=== PATIENT | male | born 1945 | race Caucasian/White ===

== ENCOUNTER 2019-09-01 08:40 | Inpatient (IN) | payer MEDICARE, BC ==
--- NOTE | 2019-09-01 09:02 | CT ---
CT BRAIN WITHOUT CONTRAST: HISTORY: Level 1 stroke. Fell in the shower. Right-sided weakness FINDINGS: There is a small focal area of decreased attenuation in the medial aspect of the right occipital lobe which could represent an age-indeterminate infarct. No evidence of acute hemorrhage, midline shift or abnormal extra-axial fluid collections is seen. The ventricular size is appropriate and the basilar cisterns are patent. The bony calvarium is intact. The visualized paranasal sinuses and mastoid air cells are well aerated. IMPRESSION: Findings suspicious for an age indeterminate infarction in the right occipital lobe. Discussed over the telephone with ER physician Dr. Kiko Adamson at 8:57 AM
[2019-09-01] MEDS ORDERED: Ondansetron PF 4 MG/2 ML Vial ONE (09:09)
[2019-09-01 09:12] LABS: #Eosinphils 0.1 thou/uL (0.0-0.7); #Lymphocytes 1.2 thou/uL (1.20-3.40); #Monocytes 0.5 thou/uL (0.11-0.59); #Neutrophils 4.2 thou/uL (1.40-6.50); %Basophils 0.7 % (0.0-1.0); %Eosinophils 1.5 % (0.0-10.0); %Neutrophils 69.8 % (42.0-75.0); Hemoglobin 16.9 g/dL (14.0-18.0); Mean Corpuscular Hemoglobin 30.1 pg (27.0-31.0); Mean Platelet Volume 11.1 fL (7.4-10.4); Platelet Count 166 thou/uL (130-400); RBC Distribution Width 13.6 % (11.5-14.5)
[2019-09-01 09:27] LABS: Base Excess-Venous 0.8 mmol/L (-2.0 to 3.0); Bicarbonate (HCO3v) 26.9 mmol/L (22.0-28.0); CO2 Tension (PvCO2) 46.4 mmHg (40.0-50.0); Calcium, Ionized 1.01 mmol/L (See Comments:); Chloride 101 mmol/L (98-107); Hemoglobin - Calc 18.5 g/dL (14.0-18.0); Potassium 3.7 mmol/L (3.5-5.1); Sodium 140 mmol/L (138-145); T. Carbon Dioxide 28.3 mmol/L (22.0-28.0); vO2 Saturation-calc 92.4 % (60.0-85.0)
[2019-09-01 09:28] LABS: Lipase 12 U/L (8-78); Magnesium 1.5 mg/dL (1.6-2.6); Phosphorus 3.5 mg/dL (2.3-4.7)
[2019-09-01] MEDS ORDERED: Aspirin 300 MG Suppository ONE ×2 (09:37→13:04)
[2019-09-01 09:38] LABS: Anion Gap 17 mmol/L (10-20); BUN (Urea Nitrogen) 26 mg/dL (8.4-25.7); Calc. Creatinine Clearance 0 mL/min (70-130); Carbon Dioxide 25 mmol/L (23-31); Chloride 103 mmol/L (98-107); Estimated GFR-MDRD 44; Potassium 4.3 mmol/L (3.5-5.1); Sodium 141 mmol/L (136-145)
[2019-09-01 09:39] LABS: ALT (SGPT) 30 U/L (8-55); AST (SGOT) 30 U/L (5-34); Alkaline Phosphatase 82 U/L (40-110); Bilirubin, Total 0.9 mg/dL (0.2-1.2); Calcium 8.9 mg/dL (7.8-10.44); Globulin 2.6 g/dL (2.4-3.5); Glucose 258 mg/dL (83-110); Protein, Total 6.6 g/dL (5.8-8.1)
--- NOTE | 2019-09-01 09:48 | RAD ---
CHEST 1 VIEW: Date: 09/01/2019 HISTORY: Right-sided weakness, altered mental status. FINDINGS: Scattered irregular opacities overlie the chest and left shoulder which have more the appearance of a rtifactual densities. Heart size is within upper range of normal limits given inspiration. No conflue nt pneumonia, overt edema, or pleural effusion. IMPRESSION: Borderline heart size. No acute intrathoracic disease. POS: [facility]
[2019-09-01 10:04] LABS: CKMB 2.3 ng/mL (0-6.6)
--- NOTE | 2019-09-01 10:26 | CT ---
CT ANGIOGRAM NECK WITH CONTRAST CT ANGIOGRAM BRAIN WITH CONTRAST: DATE: 09/01/2019 HISTORY: 73-year-old male status post acute head and neck trauma from fall, and acute stroke symptoms: Right u pper extremity weakness. Dr. Orourke verbally gave report to Dr. Adamson of the emergency Department at 10:17 AM 09/01/2019 TECHNIQUE: After IV contrast injection, arterial bolus chasing technique scan performed from AP window to vertex of head. Coronal and sagittal 3-D MIP reconstructions. FINDINGS: Superior malpositioning of atlantoodontoid complex, including tip of odontoid process 14 mm superior to Hatteras's line, and atlantooccipital fusion. Secondary severe degenerative changes and deformity of right atlantoaxial joint. The basilar invagination, along with calcified degenerative ps eudopannus posterior and superior to the odontoid process, significantly, chronically compresses and deforms the medulla and cervical medullary junction. There is severe crowding of the foramen magn um. Brachiocephalic: No high-grade stenosis. Right subclavian: No high-grade stenosis. Right vertebral: Diffusely very small caliber and therefore difficult to evaluate. Prominent calcifie d plaque at origin causing high-grade, probably severe stenosis. Poor contrast opacification of distal cervical portion. No contrast visualized in 75% of the Proximal intracranial segment. Contrast visualized in very small caliber distal 0.8 cm, including junction with left vertebral-basilar. Left subclavian: No high-grade stenosis of proximal and mid portions. Distal portion obscured by jarad re streak artifact from dense contrast material in adjacent left subclavian vein. Left vertebral: Dominant. No high-grade short segment focal stenosis identified. Prominent calcified atheromatous plaque at intracranial portion causing mild stenosis. Right common carotid: No high-grade stenosis. Left common carotid: No high-grade stenosis. Right internal carotid: Heavily calcified plaque at origin and proximal R ICA. Estimated 75% stenosis at origin. No high-grade short segment focal stenosis elsewhere. Calcified plaque at carotid siphon. Calcified plaque causing severe stenosis at junction between cavernous and supraclinoid carot id. Left internal carotid: No significant stenosis in cervical portion. Severe stenosis due to calcified plaque at junction between cavernous carotid and supraclinoid carotid. Right MCA: No high-grade stenosis or thrombus. Left MCA: No high-grade stenosis or thrombus. Right WOO: Absent A1 segment. Patent A2 segment supplied by left A1 segment via anterior communicatin g artery. Left WOO: No high-grade stenosis of A1 and A2 segments. Basilar: No high-grade stenosis. Right AUTOMOTIVE SH[employer]EM[employer]: Patent P1 and P2 segments. Left AUTOM[employer] SH[employer]EM[employer]: Patent P1 and P2 segments. Dural venous sinuses: Patent, with no thrombosis Misshapen, small right lobe with scleral buckle. IMPRESSION: 1) no M1 segment severe stenosis or thrombosis. 2) very diminutive right vertebral artery. Severe stenosis at origin. Possible occlusion at distal ce rvical and intracranial portions, with reflux into most distal intracranial right vertebral from contralateral side. 3) heavy atherosclerotic plaque at proximal right internal carotid causing approximately 75% stenosis . 4) severe short segment focal stenoses of bilateral carotid siphons at the junctions between cavernou s and supraclinoid segments. 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
[2019-09-01] MEDS ORDERED: Sodium Chloride 0.9% 1,000 ML IV SCH (13:36)
[2019-09-01] MEDS ORDERED: Ondansetron ODT 4 MG TAB SL PRN (13:36)
[2019-09-01] MEDS ORDERED: Ondansetron PF 4 MG/2 ML Vial IVP PRN (13:36)
[2019-09-01] MEDS ORDERED: Iopamidol-370 76% 500 ML 1 ML ONE (13:45)
[2019-09-01] MEDS ORDERED: hydrALAZINE 20 MG/ML VIAL SLOW IVP PRN (14:21)
[2019-09-01 15:13] LABS: Troponin I 0.082 ng/mL (< 0.028)
[2019-09-01 17:33] LABS: Glucose 247 mg/dL (83-110)
[2019-09-01] MEDS ORDERED: Dextrose 5% in Water 1,000 ML IV PRN (17:44)
[2019-09-01] MEDS ORDERED: Dextrose 50% Abboject 50 ML SYRINGE IVP PRN (17:44)
[2019-09-01] MEDS ORDERED: Ondansetron PF 4 MG/2 ML Vial SLOW IVP SCH (20:00)
[2019-09-01] MEDS ORDERED: Atorvastatin Calcium 40 MG TAB PO SCH (21:00)
--- NOTE | 2019-09-01 21:05 | CON ---
DATE OF CONSULTATION: 09/01/2019 REASON FOR CONSULTATION: Indeterminate troponins. HISTORY OF PRESENT ILLNESS: Mr. Brown is a pleasant 73-year-old white gentleman, who comes to the hospital for right-sided weakness. He states that his right arm and right leg were felt very weak. He felt he could not hold on anything, he could not stand. He came in for evaluation, was admitted for rule out of possible CVA. On my evaluation, he denies any chest pain, tightness, or pressure. No shortness of breath. No syncope or presyncope. PAST MEDICAL HISTORY: 1. Type 2 diabetes. 2. Hyperlipidemia. PAST SURGICAL HISTORY: 1. Bilateral ankle surgery. 2. Amputation of the second and fifth toes on the right foot. SOCIAL HISTORY: Former smoker, quit 10 years ago. No alcohol or drugs. OUTPATIENT MEDICATIONS: 1. Levothyroxine 75 mcg a day. 2. Invokana. 3. Colcrys. 4. Gabapentin. 5. Atorvastatin. 6. Omeprazole. 7. B12 shots. 8. Glucosamine. 9. Magnesium. 10. Cinnamon. 11. Lantus. ALLERGIES: NO KNOWN DRUG ALLERGIES. REVIEW OF SYSTEMS: 12-point review of systems was done and was all negative unless stated in the history of present illness. PHYSICAL EXAMINATION: VITAL SIGNS: Temperature 97.2, pulse 95, respiratory rate 20, saturating 98% on room air, blood pressure 140/84. GENERAL: Awake, alert, and oriented x3. No distress. HEENT: Normocephalic and atraumatic. NECK: Supple. LUNGS: Clear. CARDIOVASCULAR: S1 and S2. No S3 or S4. ABDOMEN: Soft. Positive bowel sounds. EXTREMITIES: There is trace edema. There is an ulcer on the right leg, which seems erythematous. According to the family, it has been healing for the last 2 weeks and is actually much better than when it looked before. LABORATORY DATA: Laboratory work was reviewed. CBC with a white count of 6, hemoglobin 16, hematocrit 52, platelet count of 166. ABG was reviewed. Chemistries were reviewed. Magnesium was low at 1.5. Troponin has been 0.08, 0.08. Creatinine was 1.56. Toxicology; beta-hydroxybutyrate was 5.72. MRI of the brain is pending. CT of [place] is negative. ASSESSMENT: 1. Motor deficits consistent with most likely cerebrovascular accident. 2. Indeterminate troponins, most likely not significant issue. PLAN: 1. We will get an echocardiogram. Thank you for letting us participate in the care of your patient. We will follow. Job ID: [id number] MTDD
[2019-09-01 21:07] LABS: Glucose 230 mg/dL (83-110)
[2019-09-01 21:19] LABS: Troponin I 0.066 ng/mL (< 0.028)
[2019-09-01] MEDS ORDERED: HumaLOG 300 UNITS/3 ML VIAL SC PRN (23:50)
[2019-09-02] MEDS: Acetaminophen 325 MG TAB PO PRN ×3 (04:13→15:43)
[2019-09-02 06:08] LABS: Cardiac Risk 2.6 (Less than 4.5)
[2019-09-02 07:30] LABS: Glucose 203 mg/dL (83-110)
[2019-09-02] MEDS: Aspirin 325 mg Enteric Coated Tablet PO SCH (09:02)
[2019-09-02] MEDS: Enoxaparin Sodium 40 MG/0.4 ML SYRINGE SC SCH (09:03)
[2019-09-02] MEDS: Ondansetron PF 4 MG/2 ML Vial SLOW IVP PRN ×2 (09:03→15:44)
[2019-09-02] MEDS: Insulin Glargine 17 UNITS in Pre-Filled Syringe 1 EACH SC SCH ×2 (09:04→21:53)
--- NOTE | 2019-09-02 09:24 | PDOC.HOSPP ---
- Subjective Encounter Date: 09/02/19 Encounter Time: 09:23 Subjective: poor coordination R arm - Objective Vital Signs & Weight: Vital Signs (12 hours) Temp Pulse Resp BP Pulse Ox 09/02/19 07:50 95 09/02/19 07:00 97.5 F L 88 20 120/63 95 09/02/19 03:00 98.3 F 87 20 113/87 97 09/01/19 23:55 97.4 F L 94 20 145/72 H 98 Weight Weight 233 lb 6 oz Result Diagrams: 09/01/19 09:03 09/02/19 05:05 Additional Labs: Accuchecks 09/01/19 14:21 POC Glucose 222 H Radiology Reviewed by me: Yes (MRI- R cerebellar infarct) Hospitalist ROS - Medication Medications: Active Medications Generic Name Dose Route Start Last Admin Trade Name Freq PRN Reason Stop Dose Admin Acetaminophen 650 mg 09/02/19 04:06 09/02/19 09:02 Tylenol PO 650 mg Q6H PRN Administration Pain Aspirin 325 mg 09/02/19 09:00 09/02/19 09:02 Ecotrin PO 325 mg DAILY [facility] Administration Atorvastatin Calcium 80 mg 09/01/19 21:00 09/01/19 21:06 Lipitor PO 80 mg HS CANDE Administration Enoxaparin Sodium 40 mg 09/02/19 09:00 09/02/19 09:03 Lovenox SC 40 mg 0900 [facility] Administration Insulin Glargine 17 units/ 0.17 mls @ 0 mls/hr 09/02/19 09:00 09/02/19 09:04 Miscellaneous Medication SC 0.17 mls BID CANDE Administration Insulin Human Lispro 0 units 09/01/19 23:50 09/02/19 00:01 Humalog SC 2 unit .BEDTIME SLIDING SC PRN Administration BEDTIME SLIDING SCALE Protocol Ondansetron HCl 8 mg 09/01/19 19:56 09/02/19 09:03 Zofran SLOW IVP 8 mg Q6H PRN Administration Nausea - Exam General Appearance: awake alert Neck: no JVD Heart: RRR Respiratory: CTAB Gastrointestinal: soft, non-tender, normal bowel sounds Neurological - other findings: marked spasticity on R Hosp A/P (1) Cerebellar infarct Code(s): I63.9 - CEREBRAL INFARCTION, UNSPECIFIED Status: Acute (2) DM type 2 (diabetes mellitus, type 2) Status: Acute Qualifiers: Diabetes mellitus intermediate insulin use: with terminologist use Diabetes mellitus complication status: with kidney complications Diabetes mellitus complication detail: with chronic kidney disease Chronic kidney disease stage : stage 3 (moderate) Qualified Code(s): E11.22 - Type 2 diabetes mellitus with diabetic chronic kidney disease; N18.3 - Chronic kidney disease, stage 3 ( moderate); Z79.4 - vermin exterminator (current) use of insulin (3) HTN (hypertension) Code(s): I10 - ESSENTIAL (PRIMARY) HYPERTENSION Status: Chronic (4) Syncope and collapse Code(s): R55 - SYNCOPE AND COLLAPSE Status: Acute - Plan ASA, statin for cerebellar infarct PT/OT selected home meds ACCU/ss/etc
--- NOTE | 2019-09-02 09:44 | HP ---
PRESENTING COMPLAINT: Right-sided weakness. HISTORY OF PRESENT ILLNESS: The patient with a past medical history of hyperlipidemia, diabetes mellitus, history of vertigo, presented with right-sided weakness. As per patient, he got up this morning and he was trying to go to take his insulin, he had cough and sneezing and collapsed and initially for a second, he could not move his whole body, then he started moving his left side of the arm which was getting better, but had weakness in the right side of the body which continued. The patient admitted with a stroke alert and upon arrival to the emergency room, the patient symptoms are improving, right-sided weakness was improving, so ED physician and the family decided not to give tPA. The patient was being admitted for further evaluation. The patient also had a little nausea earlier. Denied vomiting, diarrhea, or constipation. Denied any slurred speech. Had dizziness and as per the patient, he was falling towards the right side and his right side was getting weaker. Also has been feeling for 1 week mild shortness of breath and swelling of the feet. Denies any chest pain, slurred speech, or palpitation. CT brain was performed in the emergency room showed suspicious for an age-indeterminate infarction of the right occipital lobe. CTA was performed, which showed heavy atherosclerotic plaque of the proximal right internal carotid causing approximately 75% stenosis and severe short-segment focal stenosis of bilateral carotid siphons at the junctions between cavernous and supraclinoid segments. Also CTA showed very diminutive right vertebral artery severe stenosis at the origin, possible occlusion at distal cervical and intracranial portions with reflux into most distal intracranial right vertebral from contralateral side. REVIEW OF SYSTEMS: As mentioned above in the HPI. All other systems are negative. PAST MEDICAL HISTORY: As mentioned above in the HPI. PAST SURGICAL HISTORY: History of amputation of toes, history of right eye surgery. SOCIAL HISTORY: Denies smoking, alcohol abuse, or drug abuse. FAMILY HISTORY: Reviewed and noncontributory. HOME MEDICATIONS: 1. Allopurinol. 2. Colchicine. 3. Enalapril. 4. Insulin glargine. 5. Magnesium oxide. 6. Multivitamin. 7. Pravastatin. 8. Pregabalin. 9. Bactrim. PHYSICAL EXAMINATION: VITAL SIGNS: Blood pressure 177/98, temperature 97.4, oxygen saturation 99%, pulse 110. GENERAL: The patient lying in bed comfortably, in no distress. HEENT: Conjunctivae, left side normal, right eye prosthesis. Oral mucosa moist. NECK: Supple. No JVD. No lymphadenopathy. CHEST: Normal vesicular breathing. No rhonchi. No wheezing. HEART: Sounds normal. No murmur. No gallop. No rub. ABDOMEN: Soft. Benign. No tenderness or visceromegaly. Skin ulceration noted in right lower extremity with mildly cool to touch right extremity. Distal toe skin mild abrasion noted. LABORATORY DATA: CBC unremarkable. Venous; pH 7.370. BMP unremarkable except creatinine 1.56, BUN 26. LFTs normal. Troponin 0.086. Magnesium 1.5. Beta hydroxybutyrate 0.72. CT brain, finding suspicious for an age-indeterminate infarction in the right occipital lobe. Chest x-ray, borderline heart size. No acute intrathoracic disease. CTA diminutive right vertebral artery severe stenosis at the origin, possible occlusion at the distal cervical and intracranial portions with reflux into most distal intracranial right vertebral from contralateral side. Heavy atherosclerotic plaque in proximal right internal carotid causing approximately 75% stenosis. Severe short-segment focal stenosis of bilateral carotid siphons at the junctions between cavernous and supraclinoid segments. 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 IMPRESSION: 1. Possible acute cerebrovascular accident with right-sided weakness. The patient admitted with stroke alert; however, no tPA was offered as the patient's symptoms are improving in the emergency room. CT brain positive for age-indeterminate right occipital lobe infarct. We will get an MRI brain. CTA neck positive for 75% right ICA stenosis. We will continue antiplatelet therapy and statins. Neurology evaluation. Continue neuro checks. Echocardiogram. Tele monitoring. Serial troponins, positive troponin, possible demand supply mismatch. The patient denies any chest pain. If further worsening troponin, we will get Cardiology evaluation. 2. Hyperlipidemia. Continue statins. 3. Diabetes mellitus. Continue to monitor blood sugar. Continue sliding scale insulin. 4. History of vertigo. 5. Abnormal kidney functions. The patient has no baseline creatinine available in the system. We will continue gentle fluids and monitor BMP in the morning. 6. Deep venous thrombosis and gastrointestinal prophylaxis. Plan discussed with the patient's and son who is present at bedside. Job ID: [id number]
[2019-09-02] MEDS: HumaLOG 300 UNITS/3 ML VIAL SC PRN ×2 (11:09→18:08)
[2019-09-02 12:23] LABS: Glucose 228 mg/dL (83-110)
--- NOTE | 2019-09-02 14:08 | CON ---
DATE OF CONSULTATION: 09/01/2019 CONSULTING PHYSICIAN: Hospitalist Service. IMPRESSION: 1. Right cerebellar stroke. 2. Diabetes. PLAN: 1. Aspirin. 2. Continue statin. 3. Echocardiogram. 4. PT and OT assessments with probable need for inpatient rehab. HISTORY OF PRESENT ILLNESS: Mr. Brown is a 73-year-old gentleman with known history of diabetes. He was standing in his bathroom when he suddenly became weak and collapsed. He was brought in for evaluation. Initial CT scan and CT angiogram were all suspicious for right occipital lobe stroke. His MRI subsequently confirmed evidence of a right cerebellar stroke. He continues to complain of incoordination of the right side of the body. He has not had any swallowing difficulties. He has some chronic headache and neck pain. 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 He also has fairly severe peripheral neuropathy and peripheral vascular disease, which has necessitated some amputation of toes on the right foot. He was getting around reasonably independently prior to the stroke. PAST HISTORY: Diabetes. ALLERGIES: NONE. SOCIAL HISTORY: No tobacco. FAMILY HISTORY: Noncontributory. REVIEW OF SYSTEMS: Ten-system review of systems is otherwise negative. PHYSICAL EXAMINATION: VITAL SIGNS: Blood pressure 120/63, pulse 88, respirations 20, and temperature 97.5. HEENT: His left pupil is reactive. Conjunctivae are clear. Oropharynx is clear. Cranium, normocephalic and atraumatic. NECK: Supple. EXTREMITIES: Dystrophic changes in both lower extremities. NEUROLOGIC: He is alert and appropriate. His speech is fluent and clear. He has a slight right facial droop. Motor exam shows antigravity strength, but very poor coordination on the right side. Gait was not tested. Sensation shows decreased light touch in a stocking-glove distribution. DIAGNOSTIC STUDIES: EKG shows sinus rhythm. SUMMARY: This is a 73-year-old gentleman with an acute cerebellar stroke. Aspirin has been started. I would continue his statin. His echo will be reviewed, although it is unlikely to be revealing given his lack of cardiac history. He will likely need inpatient therapy. Job ID: [id number]
[2019-09-02] MEDS: metFORMIN 500 MG TAB PO SCH (17:20)
[2019-09-02 17:26] LABS: Glucose 210 mg/dL (83-110)
--- NOTE | 2019-09-02 20:48 | PDOC.CPN ---
- Subjective Date: 09/02/19 Time: 20:46 Interval history: He is dizzy when standing up consistent with his cerebellar stroke. No angina. - Review of Systems General: denies: fever/chills, weight/appetite/sleep changes, night sweats, fatigue Respiratory: denies: cough, congestion, shortness of breath, exercise intolerance Cardiovascular: denies: chest pain, palpitation, edema, paroxysmal nocturnal dyspnea, orthopnea Gastrointestinal: denies: nausea, vomiting, diarrhea, constipation, abd pain, GI bleeding Musculoskeletal: denies: pain, tenderness, stiffness, swelling, arthritis/ arthralgias Neurological: denies: numbness, syncope, seizure, weakness - Objective Allergies/Adverse Reactions: Allergies Allergy/AdvReac Type Severity Reaction Status Date / Time No Known Allergies Allergy Verified 07/09/13 12:23 Visit Medications: Current Medications Acetaminophen (Tylenol) 650 mg PO Q6H PRN PRN Reason: Pain Last Admin: 09/02/19 15:43 Dose: 650 mg Alprazolam (Xanax) 0.25 mg PO DAILY [facility] Aspirin (Ecotrin) 325 mg PO DAILY [facility] Last Admin: 09/02/19 09:02 Dose: 325 mg Atorvastatin Calcium (Lipitor) 20 mg PO HS [facility] Colchicine (Colchicine) 0.6 mg PO BID [facility] Cyanocobalamin (Vitamin B-12) 1,000 mcg PO DAILY [facility] Dextrose/Water (Dextrose 50%) 25 gm IVP PRN PRN PRN Reason: HYPOGLYCEMIA PROTOCOL Enoxaparin Sodium (Lovenox) 40 mg SC 0900 [facility] Last Admin: 09/02/19 09:03 Dose: 40 mg Furosemide (Lasix) 40 mg PO DAILY [facility] Glucagon (Glucagon) 1 mg IM PRN PRN PRN Reason: HYPOGLYCEMIA PROTOCOL Hydralazine HCl (Apresoline) 10 mg SLOW IVP Q4H PRN PRN Reason: BP > 220/110 Dextrose/Water (D5w) 1,000 mls @ 0 mls/hr IV INF PRN PRN Reason: HYPOGLYCEMIA PROTOCOL Insulin Glargine 17 units/ (Miscellaneous Medication) 0.17 mls @ 0 mls/hr SC BID [facility] Last Admin: 09/02/19 09:04 Dose: 0.17 mls Insulin Human Lispro (Humalog) 0 units SC .MILD SLIDING SCALE PRN; Protocol PRN Reason: MILD SLIDING SCALE Last Admin: 09/02/19 18:08 Dose: 3 unit Insulin Human Lispro (Humalog) 0 units SC .BEDTIME SLIDING SC PRN; Protocol PRN Reason: BEDTIME SLIDING SCALE Last Admin: 09/02/19 00:01 Dose: 2 unit Levothyroxine Sodium (Synthroid) 75 mcg PO DAILY [facility] Magnesium Oxide (Magnesium Oxide) 500 mg PO DAILY [facility] Metformin HCl (Glucophage) 1,000 mg PO BID-WM [facility] Last Admin: 09/02/19 17:20 Dose: 1,000 mg Multivitamins (Theragran) 1 tab PO DAILY [facility] Ondansetron HCl (Zofran) 8 mg SLOW IVP Q6H PRN PRN Reason: Nausea Last Admin: 09/02/19 15:44 Dose: 8 mg Pantoprazole Sodium (Protonix) 40 mg PO DAILY [facility] Canagliflozin [ (Invokana]) 0 each PO DAILY [facility] Potassium Chloride (Klor-Con) 10 meq PO DAILY [facility] Sodium Chloride (Flush - Normal Saline) 10 ml IVF PRN PRN PRN Reason: Saline Flush Vital Signs & Weight: Vital Signs Temp Pulse Pulse Pulse Resp BP BP 09/02/19 15:48 97.2 F L 88 14 09/02/19 11:00 97.8 F 84 16 09/02/19 10:26 81 83 129/69 124/62 BP Pulse Ox 09/02/19 15:48 132/72 96 09/02/19 11:00 124/62 96 09/02/19 10:26 Weight 233 lb 6 oz - Physical Exam General: alert & oriented x3 HEENT: mucus membranes moist Neck: supple neck Cardiac: regular rate and rhythm Lungs: normal breath sounds Neuro: motor function intact Abdomen: active bowel sounds Extremities: no edema Skin: clear Musculoskeletal: no pain - Labs Result Diagrams: 09/01/19 09:03 09/03/19 11:57 Troponin/CKMB CK-MB (CK-2) 2.3 ng/mL (0-6.6) 09/01/19 09:03 Troponin I 0.066 ng/mL (< 0.028) H 09/01/19 20:50 - Telemetry Sinus rhythms and dysrhythmias: sinus rhythm - Assessment/Plan Assessment/Plan: 1. New onset CM EF at 20-25% 2. Acute cerebellar infarct. 3. Type 2 DM PLAN: - Will assume he developed a thrombus in LV given LV dysfunction embolized so will recommend he be placed on full anticoagulation once safe from stroke perspective. - Will start optimal medical therapy as tolerated. - Will need ischemic work up in the next few weeks as an outpatient once further out form acute CVA.
[2019-09-02] MEDS ORDERED: Non-Formulary Item 1 EACH (Metformin Hcl [Metformin Hcl] 1,000 MG) PO SCH (21:00)
[2019-09-02 21:32] LABS: Glucose 176 mg/dL (83-110)
[2019-09-02] MEDS: Colchicine 0.6 MG TAB PO SCH (21:53)
[2019-09-02] MEDS: Atorvastatin Calcium 20 MG TAB PO SCH (21:53)
--- NOTE | 2019-09-03 07:58 | PDOC.HOSPP ---
- Subjective Encounter Date: 09/03/19 Encounter Time: 07:57 Subjective: still very dizzy with change of position - Objective Vital Signs & Weight: Vital Signs (12 hours) Temp Pulse Resp BP Pulse Ox 09/03/19 07:32 98.1 F 89 16 135/77 96 09/03/19 04:00 98.1 F 85 18 132/78 98 09/02/19 23:58 98.2 F 84 18 125/63 98 09/02/19 20:00 97.8 F 87 18 127/63 99 Weight Weight 230 lb 3.2 oz I&O: 09/02/19 09/03/19 09/04/19 05:59 06:59 06:59 Intake Total Output Total Balance Result Diagrams: 09/01/19 09:03 09/02/19 21:11 Additional Labs: Accuchecks 09/03/19 09/02/19 09/02/19 06:09 10:56 05:45 POC Glucose 140 H 211 H 155 H 09/01/19 20:27 POC Glucose 198 H Hospitalist ROS - Medication Medications: Active Medications Generic Name Dose Route Start Last Admin Trade Name Freq PRN Reason Stop Dose Admin Acetaminophen 650 mg 09/02/19 04:06 09/02/19 15:43 Tylenol PO 650 mg Q6H PRN Administration Pain Aspirin 325 mg 09/02/19 09:00 09/02/19 09:02 Ecotrin PO 325 mg DAILY [facility] Administration Atorvastatin Calcium 20 mg 09/02/19 21:00 09/02/19 21:53 Lipitor PO 20 mg HS CANDE Administration Colchicine 0.6 mg 09/02/19 21:00 09/02/19 21:53 Colchicine PO 0.6 mg BID [facility] Administration Enoxaparin Sodium 40 mg 09/02/19 09:00 09/02/19 09:03 Lovenox SC 40 mg 0900 [facility] Administration Insulin Glargine 17 units/ 0.17 mls @ 0 mls/hr 09/02/19 09:00 09/02/19 21:53 Miscellaneous Medication SC 0.17 mls BID CANDE Administration Insulin Human Lispro 0 units 09/01/19 17:44 09/02/19 18:08 Humalog SC 3 unit .MILD SLIDING SCALE PRN Administration MILD SLIDING SCALE Protocol Insulin Human Lispro 0 units 09/01/19 23:50 09/02/19 00:01 Humalog SC 2 unit .BEDTIME SLIDING SC PRN Administration BEDTIME SLIDING SCALE Protocol Metformin HCl 1,000 mg 09/02/19 17:00 09/02/19 17:20 Glucophage PO 1,000 mg BID-WM [facility] Administration Ondansetron HCl 8 mg 09/01/19 19:56 09/02/19 15:44 Zofran SLOW IVP 8 mg Q6H PRN Administration Nausea - Exam General Appearance: awake alert Neck: no JVD Heart: RRR, no murmur Respiratory: CTAB Gastrointestinal: soft, normal bowel sounds Extremities: no edema Neurological - other findings: marked spasticity on right Hosp A/P (1) Cerebellar stroke, acute Code(s): I63.9 - CEREBRAL INFARCTION, UNSPECIFIED Status: Acute (2) Cardiomyopathy Code(s): I42.9 - CARDIOMYOPATHY, UNSPECIFIED Status: Acute Qualifiers: Cardiomyopathy type: ischemic Qualified Code(s): I25.5 - Ischemic cardiomyopathy (3) DM type 2 (diabetes mellitus, type 2) Status: Acute Qualifiers: Diabetes mellitus ocean transportation intermediary insulin use: with ocean transportation intermediary use Diabetes mellitus complication status: with kidney complications Diabetes mellitus complication detail: with chronic kidney disease Chronic kidney disease stage : stage 3 (moderate) Qualified Code(s): E11.22 - Type 2 diabetes mellitus with diabetic chronic kidney disease; N18.3 - Chronic kidney disease, stage 3 ( moderate); Z79.4 - long term care administrator (current) use of insulin (4) HTN (hypertension) Code(s): I10 - ESSENTIAL (PRIMARY) HYPERTENSION Status: Chronic (5) Syncope and collapse Code(s): R55 - SYNCOPE AND COLLAPSE Status: Acute - Plan ASA, statin for cerebellar infarct PT/OT selected home meds ACCU/ss/etc b-krystle started for [employer] will discuss oral anticoag with cardiology probable inpt rehab candidate
[2019-09-03 08:53] LABS: Free T4 (Free Thyroxine) 1.12 ng/dL (0.70-1.48)
[2019-09-03] MEDS ORDERED: Non-Formulary Item 1 EACH (Multivitamin [Multi-Vitamin Daily] 1 TABLET) PO SCH (09:00)
[2019-09-03] MEDS ORDERED: Lisinopril 2.5 MG TAB PO SCH (09:00)
[2019-09-03] MEDS ORDERED: Non-Formulary Item 1 EACH (Omeprazole [Omeprazole] 20 MG) PO SCH (09:00)
[2019-09-03] MEDS ORDERED: Non-Formulary Item 1 EACH (Magnesium Oxide [Magnesium] 500 MG) PO SCH (09:00)
[2019-09-03] MEDS ORDERED: Non-Formulary Item 1 EACH (Canagliflozin [Invokana] 100 MG) PO SCH (09:00)
[2019-09-03] MEDS ORDERED: Non-Formulary Item 1 EACH (Cyanocobalamin (Vitamin B-12) [Vitamin B-12] 1,000 MCG) PO SCH (09:00)
[2019-09-03] MEDS: Enoxaparin Sodium 40 MG/0.4 ML SYRINGE SC SCH (09:45)
[2019-09-03] MEDS: Acetaminophen 325 MG TAB PO PRN (09:45)
[2019-09-03] MEDS: Ondansetron PF 4 MG/2 ML Vial SLOW IVP PRN ×2 (09:45→17:31)
[2019-09-03] MEDS: Canagliflozin [Invokana] PO SCH (09:48)
[2019-09-03] MEDS: Carvedilol 3.125 MG TAB PO SCH ×2 (09:49→17:20)
[2019-09-03] MEDS: metFORMIN 500 MG TAB PO SCH ×2 (09:49→17:20)
[2019-09-03] MEDS: ALPRAZolam 0.25 MG TAB PO SCH (09:50)
[2019-09-03] MEDS: Aspirin 325 mg Enteric Coated Tablet PO SCH (09:50)
[2019-09-03] MEDS: Furosemide 40 MG TAB PO SCH (09:50)
[2019-09-03] MEDS: Levothyroxine Sodium 75 MCG TAB PO SCH (09:50)
[2019-09-03] MEDS: Colchicine 0.6 MG TAB PO SCH ×2 (09:50→21:07)
[2019-09-03] MEDS: Multivit, Therapeutic 1 TAB PO SCH (09:51)
[2019-09-03] MEDS: Cyanocobalamin (Vitamin B-12) 1,000 MCG TAB PO SCH (09:51)
[2019-09-03] MEDS: Insulin Glargine 17 UNITS in Pre-Filled Syringe 1 EACH SC SCH ×2 (09:54→21:06)
[2019-09-03] MEDS: Magnesium Oxide 250 MG TAB PO SCH (09:54)
[2019-09-03] MEDS: HumaLOG 300 UNITS/3 ML VIAL SC PRN (11:25)
[2019-09-03 12:20] LABS: Glucose 157 mg/dL (83-110)
--- NOTE | 2019-09-03 14:22 | PDOC.EVN ---
Event Note - Event Note Event Note: patient status, rehab plans, etc discussed with family
[2019-09-03] MEDS: Meclizine HCl 25 MG TAB PO SCH ×2 (14:49→21:08)
--- NOTE | 2019-09-03 18:12 | PDOC.CPN ---
- Subjective Date: 09/03/19 Time: 18:10 Interval history: Still having issues with balance and vision is angled. - Review of Systems General: denies: fever/chills, weight/appetite/sleep changes, night sweats, fatigue Respiratory: denies: cough, congestion, shortness of breath, exercise intolerance Cardiovascular: denies: chest pain, palpitation, edema, paroxysmal nocturnal dyspnea, orthopnea Gastrointestinal: denies: nausea, vomiting, diarrhea, constipation, abd pain, GI bleeding Musculoskeletal: denies: pain, tenderness, stiffness, swelling, arthritis/ arthralgias Neurological: denies: numbness, syncope, seizure, weakness - Objective Allergies/Adverse Reactions: Allergies Allergy/AdvReac Type Severity Reaction Status Date / Time No Known Allergies Allergy Verified 07/09/13 12:23 Visit Medications: Current Medications Acetaminophen (Tylenol) 650 mg PO Q6H PRN PRN Reason: Pain Last Admin: 09/03/19 09:45 Dose: 650 mg Alprazolam (Xanax) 0.25 mg PO DAILY [facility] Last Admin: 09/03/19 09:50 Dose: 0.25 mg Aspirin (Ecotrin) 325 mg PO DAILY [facility] Last Admin: 09/03/19 09:50 Dose: 325 mg Atorvastatin Calcium (Lipitor) 20 mg PO HS [facility] Last Admin: 09/02/19 21:53 Dose: 20 mg Carvedilol (Coreg) 3.125 mg PO BID-WM [facility] Last Admin: 09/03/19 17:20 Dose: 3.125 mg Colchicine (Colchicine) 0.6 mg PO BID [facility] Last Admin: 09/03/19 09:50 Dose: 0.6 mg Cyanocobalamin (Vitamin B-12) 1,000 mcg PO DAILY [facility] Last Admin: 09/03/19 09:51 Dose: 1,000 mcg Dextrose/Water (Dextrose 50%) 25 gm IVP PRN PRN PRN Reason: HYPOGLYCEMIA PROTOCOL Enoxaparin Sodium (Lovenox) 40 mg SC 0900 [facility] Last Admin: 09/03/19 09:45 Dose: 40 mg Furosemide (Lasix) 40 mg PO DAILY [facility] Last Admin: 09/03/19 09:50 Dose: 40 mg Glucagon (Glucagon) 1 mg IM PRN PRN PRN Reason: HYPOGLYCEMIA PROTOCOL Hydralazine HCl (Apresoline) 10 mg SLOW IVP Q4H PRN PRN Reason: BP > 220/110 Dextrose/Water (D5w) 1,000 mls @ 0 mls/hr IV INF PRN PRN Reason: HYPOGLYCEMIA PROTOCOL Insulin Glargine 17 units/ (Miscellaneous Medication) 0.17 mls @ 0 mls/hr SC BID [facility] Last Admin: 09/03/19 09:54 Dose: 0.17 mls Insulin Human Lispro (Humalog) 0 units SC .MILD SLIDING SCALE PRN; Protocol PRN Reason: MILD SLIDING SCALE Last Admin: 09/03/19 11:25 Dose: 2 unit Insulin Human Lispro (Humalog) 0 units SC .BEDTIME SLIDING SC PRN; Protocol PRN Reason: BEDTIME SLIDING SCALE Last Admin: 09/02/19 00:01 Dose: 2 unit Levothyroxine Sodium (Synthroid) 75 mcg PO DAILY [facility] Last Admin: 09/03/19 09:50 Dose: 75 mcg Lisinopril (Zestril) 2.5 mg PO DAILY [facility] Last Admin: 09/03/19 09:50 Dose: 2.5 mg Magnesium Oxide (Magnesium Oxide) 500 mg PO DAILY [facility] Last Admin: 09/03/19 09:54 Dose: 500 mg Meclizine HCl (Antivert) 25 mg PO Q8HR [facility] Last Admin: 09/03/19 14:49 Dose: 25 mg Metformin HCl (Glucophage) 1,000 mg PO BID-[facility] Last Admin: 09/03/19 17:20 Dose: 1,000 mg Multivitamins (Theragran) 1 tab PO DAILY [facility] Last Admin: 09/03/19 09:51 Dose: 1 tab Ondansetron HCl (Zofran) 8 mg SLOW IVP Q6H PRN PRN Reason: Nausea Last Admin: 09/03/19 17:31 Dose: 8 mg Pantoprazole Sodium (Protonix) 40 mg PO DAILY [facility] Last Admin: 09/03/19 09:51 Dose: 40 mg Canagliflozin [ (Invokana]) 0 each PO DAILY [facility] Last Admin: 09/03/19 09:48 Dose: 1 each Potassium Chloride (Klor-Con) 10 meq PO DAILY [facility] Last Admin: 09/03/19 09:51 Dose: 10 meq Sodium Chloride (Flush - Normal Saline) 10 ml IVF PRN PRN PRN Reason: Saline Flush Vital Signs & Weight: Vital Signs Temp Pulse Pulse Pulse Resp BP BP 09/03/19 15:34 97.5 F L 83 16 09/03/19 14:20 82 84 125/75 117/73 09/03/19 11:48 97.9 F 87 16 09/03/19 09:50 89 09/03/19 07:50 09/03/19 07:32 98.1 F 89 16 BP Pulse Ox 09/03/19 15:34 125/75 97 09/03/19 14:20 09/03/19 11:48 123/68 98 09/03/19 09:50 09/03/19 07:50 96 09/03/19 07:32 135/77 96 Weight 230 lb 3.2 oz - Physical Exam General: alert & oriented x3 HEENT: mucus membranes moist Neck: supple neck Cardiac: regular rate and rhythm Lungs: clear to auscultation Neuro: weakness Abdomen: active bowel sounds Extremities: no edema Skin: clear Musculoskeletal: no pain - Labs Result Diagrams: 09/01/19 09:03 09/03/19 11:57 Troponin/CKMB CK-MB (CK-2) 2.3 ng/mL (0-6.6) 09/01/19 09:03 Troponin I 0.066 ng/mL (< 0.028) H 09/01/19 20:50 - Telemetry Sinus rhythms and dysrhythmias: sinus rhythm - Assessment/Plan Assessment/Plan: 1. New onset CM EF at 20-25% 2. Acute cerebellar infarct. 3. Type 2 DM PLAN: - Will start Eliquis in 1 week. - Will need [facility] before discharge. - Will need PT and rehab. - Continue BB, will start entresto and stop ACEI.
[2019-09-03] MEDS: Atorvastatin Calcium 20 MG TAB PO SCH (21:07)
[2019-09-04] MEDS: Meclizine HCl 25 MG TAB PO SCH ×3 (06:09→21:46)
--- NOTE | 2019-09-04 07:41 | MRI ---
EXAM: BRAIN MRI WITHOUT IV CONTRAST: 09/01/19 HISTORY: Stroke, dizziness, left sided weakness. FINDINGS: Abnormal signal on T2 and FLAIR and intense abnormal signal on diffusion weighted imaging in the righ t cerebellar hemisphere and vermis with associated intense low signal on ADC map evidence for acute i nfarct changes. The visualized right vertebral artery is very diminutive in size. There is a small fo cus of remote infarct change in the right occipital lobe. There is the suggestion of some potential n arrowing in AP dimension of the upper spinal cord at the C1-C2 odontoid level which is somewhat obscu red because of motion. IMPRESSION: Evidence for acute infarct change in the right cerebellum, particularly the right cerebellar hemisphe re and right sided vermis with some minimal edematous change and some local mass effect. Small old infarct change in the posterior right occipital lobe. Very diminutive appearance of the vis ualized portion of the right vertebral artery. Abnormal right optic globe. No evidence for mass or ac carter hemorrhage. POS: JAMMIEDI
[2019-09-04] MEDS: Carvedilol 3.125 MG TAB PO SCH ×2 (08:45→17:01)
[2019-09-04] MEDS: Furosemide 40 MG TAB PO SCH (08:45)
[2019-09-04] MEDS: ALPRAZolam 0.25 MG TAB PO SCH (08:45)
[2019-09-04] MEDS: Levothyroxine Sodium 75 MCG TAB PO SCH (08:45)
[2019-09-04] MEDS: Acetaminophen 325 MG TAB PO PRN ×2 (08:45→23:43)
[2019-09-04] MEDS: Cyanocobalamin (Vitamin B-12) 1,000 MCG TAB PO SCH (08:45)
[2019-09-04] MEDS: Enoxaparin Sodium 40 MG/0.4 ML SYRINGE SC SCH (08:46)
[2019-09-04] MEDS: Multivit, Therapeutic 1 TAB PO SCH (08:46)
[2019-09-04] MEDS: Magnesium Oxide 250 MG TAB PO SCH (08:46)
[2019-09-04] MEDS: Colchicine 0.6 MG TAB PO SCH ×2 (08:46→21:45)
[2019-09-04] MEDS: metFORMIN 500 MG TAB PO SCH ×2 (08:46→17:01)
[2019-09-04] MEDS: Aspirin 325 mg Enteric Coated Tablet PO SCH (08:46)
[2019-09-04] MEDS: Ondansetron PF 4 MG/2 ML Vial SLOW IVP PRN ×2 (08:47→17:01)
[2019-09-04] MEDS: Canagliflozin [Invokana] PO SCH (08:47)
--- NOTE | 2019-09-04 09:02 | PDOC.HOSPP ---
- Subjective Encounter Date: 09/04/19 Encounter Time: 15:00 Subjective: Patient with mild decrease in dizziness. Nausea but no vomiting. Ate better today and had 4 large BM, hadn't had any for awhile. Patient embarrassed that he had to have the nurses clean him up. - Objective Vital Signs & Weight: Vital Signs (12 hours) Temp Pulse Resp BP BP Pulse Ox 09/04/19 07:43 97.9 F 82 18 111/67 94 L 09/04/19 03:48 97.7 F 75 18 127/65 98 09/03/19 23:40 98.3 F 78 16 98/54 L 97 Weight Weight 230 lb I&O: 09/03/19 09/04/19 09/05/19 06:59 06:59 06:59 Intake Total 610 Output Total 900 Balance -290 Result Diagrams: 09/01/19 09:03 09/03/19 11:57 Additional Labs: Accuchecks 09/04/19 09/03/19 09/03/19 06:21 19:57 16:40 POC Glucose 79 110 122 H 09/03/19 09/01/19 10:52 08:49 POC Glucose 150 H 218 H Hospitalist ROS - Review of Systems Constitutional: denies: fever, chills Respiratory: denies: cough, dry, shortness of breath Cardiovascular: denies: chest pain, palpitations Gastrointestinal: reports: nausea. denies: vomiting, abdominal pain - Medication Medications: Active Medications Generic Name Dose Route Start Last Admin Trade Name Freq PRN Reason Stop Dose Admin Acetaminophen 650 mg 09/02/19 04:06 09/04/19 08:45 Tylenol PO 650 mg Q6H PRN Administration Pain Alprazolam 0.25 mg 09/03/19 09:00 09/04/19 08:45 Xanax PO 0.25 mg DAILY [facility] Administration Aspirin 325 mg 09/02/19 09:00 09/04/19 08:46 Ecotrin PO 325 mg DAILY [facility] Administration Atorvastatin Calcium 20 mg 09/02/19 21:00 09/03/19 21:07 Lipitor PO 20 mg HS [facility] Administration Carvedilol 3.125 mg 09/03/19 08:00 09/04/19 08:45 Coreg PO 3.125 mg BID-WM CAN[facility] Administration Colchicine 0.6 mg 09/02/19 21:00 09/04/19 08:46 Colchicine PO 0.6 mg BID CANDE Administration Cyanocobalamin 1,000 mcg 09/03/19 09:00 09/04/19 08:45 Vitamin B-12 PO 1,000 mcg DAILY [facility] Administration Enoxaparin Sodium 40 mg 09/02/19 09:00 09/04/19 08:46 Lovenox SC 40 mg 0900 [facility] Administration Furosemide 40 mg 09/03/19 09:00 09/04/19 08:45 Lasix PO 40 mg DAILY [facility] Administration Insulin Glargine 17 units/ 0.17 mls @ 0 mls/hr 09/02/19 09:00 09/03/19 21:06 Miscellaneous Medication SC 0.17 mls BID [facility] Administration Insulin Human Lispro 0 units 09/01/19 17:44 09/03/19 11:25 Humalog SC 2 unit .MILD SLIDING SCALE PRN Administration MILD SLIDING SCALE Protocol Insulin Human Lispro 0 units 09/01/19 23:50 09/02/19 00:01 Humalog SC 2 unit .BEDTIME SLIDING SC PRN Administration BEDTIME SLIDING SCALE Protocol Levothyroxine Sodium 75 mcg 09/03/19 09:00 09/04/19 08:45 Synthroid PO 75 mcg DAILY [facility] Administration Magnesium Oxide 500 mg 09/03/19 09:00 09/04/19 08:46 Magnesium Oxide PO 500 mg DAILY [facility] Administration Meclizine HCl 25 mg 09/03/19 14:00 09/04/19 06:09 Antivert PO 25 mg Q8HR [facility] Administration Metformin HCl 1,000 mg 09/02/19 17:00 09/04/19 08:46 Glucophage PO 1,000 mg BID-WM [facility] Administration Multivitamins 1 tab 09/03/19 09:00 09/04/19 08:46 Theragran PO 1 tab DAILY [facility] Administration Ondansetron HCl 8 mg 09/01/19 19:56 09/04/19 08:47 Zofran SLOW IVP 8 mg Q6H PRN Administration Nausea Pantoprazole Sodium 40 mg 09/03/19 09:00 09/04/19 08:45 Protonix PO 40 mg DAILY [facility] Administration Canagliflozin [ 0 each 09/03/19 09:00 09/04/19 08:47 Invokana] PO 1 each DAILY [facility] Administration Potassium Chloride 10 meq 09/03/19 09:00 09/04/19 08:46 Klor-Con PO 10 meq DAILY [facility] Administration - Exam General Appearance: NAD, awake alert Eye - other findings: keeping eyes closed all the time to decrease dizziness ENT: moist mucosa Heart: RRR, no murmur, no gallops Respiratory: CTAB, no wheezes, no rales, no ronchi Gastrointestinal: soft, non-tender, non-distended, normal bowel sounds Psychiatric: normal affect, normal behavior Hosp A/P (1) Cerebellar stroke, acute Code(s): I63.9 - CEREBRAL INFARCTION, UNSPECIFIED Status: Acute (2) Cardiomyopathy Code(s): I42.9 - CARDIOMYOPATHY, UNSPECIFIED Status: Acute Qualifiers: Cardiomyopathy type: ischemic Qualified Code(s): I25.5 - Ischemic cardiomyopathy Plan: EF 20-25% (3) DM type 2 (diabetes mellitus, type 2) Status: Acute Qualifiers: Diabetes mellitus lobsterman insulin use: with correction use Diabetes mellitus complication status: with kidney complications Diabetes mellitus complication detail: with chronic kidney disease Chronic kidney disease stage : stage 3 (moderate) Qualified Code(s): E11.22 - Type 2 diabetes mellitus with diabetic chronic kidney disease; N18.3 - Chronic kidney disease, stage 3 ( moderate); Z79.4 - care home (current) use of insulin (4) Syncope and collapse Code(s): R55 - SYNCOPE AND COLLAPSE Status: Acute (5) HTN (hypertension) Code(s): I10 - ESSENTIAL (PRIMARY) HYPERTENSION Status: Chronic - Plan ASA, statin for cerebellar infarct PT/OT selected home meds ACCU/ss/etc b-krystle started for [employer] Eliquis starting in 1 week per cardiology rehab placement needs [facility] prior to discharge
[2019-09-04] MEDS: Insulin Glargine 17 UNITS in Pre-Filled Syringe 1 EACH SC SCH ×2 (09:50→21:45)
--- NOTE | 2019-09-04 16:13 | PDOC.CPN ---
- Subjective Date: 09/04/19 Time: 16:11 Interval history: No new issues. - Review of Systems General: denies: fever/chills, weight/appetite/sleep changes, night sweats, fatigue Respiratory: denies: cough, congestion, shortness of breath, exercise intolerance Cardiovascular: denies: chest pain, palpitation, edema, paroxysmal nocturnal dyspnea, orthopnea - Objective Allergies/Adverse Reactions: Allergies Allergy/AdvReac Type Severity Reaction Status Date / Time No Known Allergies Allergy Verified 07/09/13 12:23 Visit Medications: Current Medications Acetaminophen (Tylenol) 650 mg PO Q6H PRN PRN Reason: Pain Last Admin: 09/04/19 08:45 Dose: 650 mg Alprazolam (Xanax) 0.25 mg PO DAILY [facility] Last Admin: 09/04/19 08:45 Dose: 0.25 mg Aspirin (Ecotrin) 325 mg PO DAILY [facility] Last Admin: 09/04/19 08:46 Dose: 325 mg Atorvastatin Calcium (Lipitor) 20 mg PO HS [facility] Last Admin: 09/03/19 21:07 Dose: 20 mg Carvedilol (Coreg) 3.125 mg PO BID-WM [facility] Last Admin: 09/04/19 08:45 Dose: 3.125 mg Colchicine (Colchicine) 0.6 mg PO BID [facility] Last Admin: 09/04/19 08:46 Dose: 0.6 mg Cyanocobalamin (Vitamin B-12) 1,000 mcg PO DAILY [facility] Last Admin: 09/04/19 08:45 Dose: 1,000 mcg Dextrose/Water (Dextrose 50%) 25 gm IVP PRN PRN PRN Reason: HYPOGLYCEMIA PROTOCOL Enoxaparin Sodium (Lovenox) 40 mg SC 0900 [facility] Last Admin: 09/04/19 08:46 Dose: 40 mg Furosemide (Lasix) 40 mg PO DAILY [facility] Last Admin: 09/04/19 08:45 Dose: 40 mg Glucagon (Glucagon) 1 mg IM PRN PRN PRN Reason: HYPOGLYCEMIA PROTOCOL Hydralazine HCl (Apresoline) 10 mg SLOW IVP Q4H PRN PRN Reason: BP > 220/110 Dextrose/Water (D5w) 1,000 mls @ 0 mls/hr IV INF PRN PRN Reason: HYPOGLYCEMIA PROTOCOL Insulin Glargine 17 units/ (Miscellaneous Medication) 0.17 mls @ 0 mls/hr SC BID [facility] Last Admin: 09/04/19 09:50 Dose: Not Given Insulin Human Lispro (Humalog) 0 units SC .MILD SLIDING SCALE PRN; Protocol PRN Reason: MILD SLIDING SCALE Last Admin: 09/03/19 11:25 Dose: 2 unit Insulin Human Lispro (Humalog) 0 units SC .BEDTIME SLIDING SC PRN; Protocol PRN Reason: BEDTIME SLIDING SCALE Last Admin: 09/02/19 00:01 Dose: 2 unit Levothyroxine Sodium (Synthroid) 75 mcg PO DAILY [facility] Last Admin: 09/04/19 08:45 Dose: 75 mcg Magnesium Oxide (Magnesium Oxide) 500 mg PO DAILY [facility] Last Admin: 09/04/19 08:46 Dose: 500 mg Meclizine HCl (Antivert) 25 mg PO Q8HR [facility] Last Admin: 09/04/19 14:20 Dose: 25 mg Metformin HCl (Glucophage) 1,000 mg PO BID-[facility] Last Admin: 09/04/19 08:46 Dose: 1,000 mg Multivitamins (Theragran) 1 tab PO DAILY [facility] Last Admin: 09/04/19 08:46 Dose: 1 tab Ondansetron HCl (Zofran) 8 mg SLOW IVP Q6H PRN PRN Reason: Nausea Last Admin: 09/04/19 08:47 Dose: 8 mg Pantoprazole Sodium (Protonix) 40 mg PO DAILY [facility] Last Admin: 09/04/19 08:45 Dose: 40 mg Canagliflozin [ (Invokana]) 0 each PO DAILY [facility] Last Admin: 09/04/19 08:47 Dose: 1 each Potassium Chloride (Klor-Con) 10 meq PO DAILY [facility] Last Admin: 09/04/19 08:46 Dose: 10 meq Sacubitril/Valsartan (Entresto 24.5 Mg-25.5 Mg Tablet) 1 tab PO BID [facility] Sodium Chloride (Flush - Normal Saline) 10 ml IVF PRN PRN PRN Reason: Saline Flush Vital Signs & Weight: Vital Signs Temp Pulse Pulse Pulse Resp BP BP 09/04/19 11:42 97.6 F 73 17 09/04/19 10:10 62 62 101/58 L 102/58 L 09/04/19 07:43 97.9 F 82 18 BP Pulse Ox 09/04/19 11:42 101/62 95 09/04/19 10:10 09/04/19 07:43 111/67 94 L Admit Weight 227 lb 5 oz Weight 230 lb - Physical Exam General: alert & oriented x3 HEENT: mucus membranes moist Neck: supple neck Cardiac: regular rate and rhythm Lungs: clear to auscultation Neuro: weakness Abdomen: unremarkable Extremities: no edema Skin: clear Musculoskeletal: normal range of motion - Labs Result Diagrams: 09/01/19 09:03 09/03/19 11:57 Troponin/CKMB CK-MB (CK-2) 2.3 ng/mL (0-6.6) 09/01/19 09:03 Troponin I 0.066 ng/mL (< 0.028) H 09/01/19 20:50 - Telemetry Sinus rhythms and dysrhythmias: sinus rhythm - Assessment/Plan Assessment/Plan: 1. New onset CM EF at 20-25% 2. Acute cerebellar infarct. 3. Type 2 DM PLAN: - Will start Eliquis in 1 week. - Will need [facility] before discharge. - Will need PT and rehab. - Continue BB, Entresto. - Will sign off. Follow up in the office in 1 month.
[2019-09-04] MEDS ORDERED: Sacubitril 24.5 MG/Valsartan 25.5 MG TABLET PO SCH (21:00)
[2019-09-04] MEDS: Atorvastatin Calcium 20 MG TAB PO SCH (21:46)
[2019-09-05] MEDS ORDERED: rOPINIRole HCl 0.25 MG TAB PO SCH (03:00)
[2019-09-05 05:12] LABS: Anion Gap 18 mmol/L (10-20); BUN (Urea Nitrogen) 43 mg/dL (8.4-25.7); Carbon Dioxide 24 mmol/L (23-31); Chloride 102 mmol/L (98-107); Potassium 4.2 mmol/L (3.5-5.1); Sodium 140 mmol/L (136-145)
[2019-09-05 05:13] LABS: Calc. Creatinine Clearance 57 mL/min (70-130); Calcium 9.7 mg/dL (7.8-10.44); Estimated GFR-MDRD 40; Glucose 123 mg/dL (83-110); Magnesium 1.9 mg/dL (1.6-2.6)
[2019-09-05] MEDS: Meclizine HCl 25 MG TAB PO SCH ×3 (05:38→23:03)
[2019-09-05] MEDS: metFORMIN 500 MG TAB PO SCH ×2 (08:38→17:15)
[2019-09-05] MEDS: Magnesium Oxide 250 MG TAB PO SCH (08:38)
[2019-09-05] MEDS: Furosemide 40 MG TAB PO SCH (08:38)
[2019-09-05] MEDS: Colchicine 0.6 MG TAB PO SCH ×2 (08:39→23:02)
[2019-09-05] MEDS: Cyanocobalamin (Vitamin B-12) 1,000 MCG TAB PO SCH (08:39)
[2019-09-05] MEDS: Levothyroxine Sodium 75 MCG TAB PO SCH (08:39)
[2019-09-05] MEDS: ALPRAZolam 0.25 MG TAB PO SCH (08:39)
[2019-09-05] MEDS: Multivit, Therapeutic 1 TAB PO SCH (08:39)
[2019-09-05] MEDS: Aspirin 325 mg Enteric Coated Tablet PO SCH (08:39)
[2019-09-05] MEDS: Carvedilol 3.125 MG TAB PO SCH ×2 (08:39→17:16)
[2019-09-05] MEDS: Canagliflozin [Invokana] PO SCH (08:40)
[2019-09-05] MEDS: Enoxaparin Sodium 40 MG/0.4 ML SYRINGE SC SCH (08:40)
[2019-09-05] MEDS: Insulin Glargine 17 UNITS in Pre-Filled Syringe 1 EACH SC SCH ×2 (08:42→23:03)
--- NOTE | 2019-09-05 09:05 | PDOC.HOSPP ---
- Subjective Encounter Date: 09/05/19 Encounter Time: 10:50 Subjective: Patient mildly improved with dizziness. Awaiting rehab placement and [facility]. Has some chronic back pain, no other complaints. - Objective Vital Signs & Weight: Vital Signs (12 hours) Temp Pulse Resp BP BP Pulse Ox 09/05/19 07:32 97.2 F L 75 14 129/81 94 L 09/05/19 03:51 98.1 F 75 18 120/73 98 09/04/19 23:45 97.4 F L 74 18 126/66 100 Weight Admit Weight 227 lb 5 oz Weight 225 lb I&O: 09/04/19 09/05/19 09/06/19 06:59 06:59 06:59 Intake Total 610 600 Output Total 900 550 100 Balance -290 50 -100 Result Diagrams: 09/01/19 09:03 09/05/19 04:37 Additional Labs: Accuchecks 09/05/19 09/04/19 09/04/19 05:47 20:06 16:50 POC Glucose 110 111 H 119 H 09/04/19 09/04/19 10:47 09:37 POC Glucose 95 97 Hospitalist ROS - Review of Systems Constitutional: denies: fever, chills Respiratory: denies: cough, shortness of breath Cardiovascular: denies: chest pain, palpitations Gastrointestinal: denies: nausea, vomiting, abdominal pain, diarrhea, constipation Musculoskeletal: reports: back pain - Medication Medications: Active Medications Generic Name Dose Route Start Last Admin Trade Name Freq PRN Reason Stop Dose Admin Acetaminophen 650 mg 09/02/19 04:06 09/04/19 23:43 Tylenol PO 650 mg Q6H PRN Administration Pain Alprazolam 0.25 mg 09/03/19 09:00 09/05/19 08:39 Xanax PO 0.25 mg DAILY CANDE Administration Aspirin 325 mg 09/02/19 09:00 09/05/19 08:39 Ecotrin PO 325 mg DAILY CANDE Administration Atorvastatin Calcium 20 mg 09/02/19 21:00 09/04/19 21:46 Lipitor PO 20 mg HS CANDE Administration Carvedilol 3.125 mg 09/03/19 08:00 09/05/19 08:39 Coreg PO 3.125 mg BID-WM CANDE Administration Colchicine 0.6 mg 09/02/19 21:00 09/05/19 08:39 Colchicine PO 0.6 mg BID CANDE Administration Cyanocobalamin 1,000 mcg 09/03/19 09:00 09/05/19 08:39 Vitamin B-12 PO 1,000 mcg DAILY CANDE Administration Enoxaparin Sodium 40 mg 09/02/19 09:00 09/05/19 08:40 Lovenox SC 40 mg 0900 CANDE Administration Furosemide 40 mg 09/03/19 09:00 09/05/19 08:38 Lasix PO 40 mg DAILY CANDE Administration Insulin Glargine 17 units/ 0.17 mls @ 0 mls/hr 09/02/19 09:00 09/05/19 08:42 Miscellaneous Medication SC Not Given BID CANDE Insulin Human Lispro 0 units 09/01/19 17:44 09/03/19 11:25 Humalog SC 2 unit .MILD SLIDING SCALE PRN Administration MILD SLIDING SCALE Protocol Insulin Human Lispro 0 units 09/01/19 23:50 09/02/19 00:01 Humalog SC 2 unit .BEDTIME SLIDING SC PRN Administration BEDTIME SLIDING SCALE Protocol Levothyroxine Sodium 75 mcg 09/03/19 09:00 09/05/19 08:39 Synthroid PO 75 mcg DAILY CANDE Administration Magnesium Oxide 500 mg 09/03/19 09:00 09/05/19 08:38 Magnesium Oxide PO 500 mg DAILY CANDE Administration Meclizine HCl 25 mg 09/03/19 14:00 09/05/19 05:38 Antivert PO 25 mg Q8HR CANDE Administration Metformin HCl 1,000 mg 09/02/19 17:00 09/05/19 08:38 Glucophage PO 1,000 mg BID-WM CANDE Administration Multivitamins 1 tab 09/03/19 09:00 09/05/19 08:39 Theragran PO 1 tab DAILY CANDE Administration Ondansetron HCl 8 mg 09/01/19 19:56 09/04/19 17:01 Zofran SLOW IVP 8 mg Q6H PRN Administration Nausea Pantoprazole Sodium 40 mg 09/03/19 09:00 09/05/19 08:39 Protonix PO 40 mg DAILY CANDE Administration Canagliflozin [ 0 each 09/03/19 09:00 09/05/19 08:40 Invokana] PO 1 each DAILY CANDE Administration Potassium Chloride 10 meq 09/03/19 09:00 09/05/19 08:40 Klor-Con PO 10 meq DAILY CANDE Administration Sacubitril/Valsartan 1 tab 09/05/19 09:00 09/05/19 08:51 Entresto 24 Mg-26 Mg Tablet PO 1 tab BID CANDE Administration - Exam General Appearance: NAD, awake alert ENT: moist mucosa Heart: RRR, no murmur, no gallops, no rubs Respiratory: CTAB, no wheezes, no rales, no ronchi Gastrointestinal: soft, non-tender, non-distended, normal bowel sounds Psychiatric: normal affect, normal behavior, A&O x 3 Hosp A/P (1) Cerebellar stroke, acute Code(s): I63.9 - CEREBRAL INFARCTION, UNSPECIFIED Status: Acute (2) Cardiomyopathy Code(s): I42.9 - CARDIOMYOPATHY, UNSPECIFIED Status: Acute Qualifiers: Cardiomyopathy type: ischemic Qualified Code(s): I25.5 - Ischemic cardiomyopathy (3) DM type 2 (diabetes mellitus, type 2) Status: Acute Qualifiers: Diabetes mellitus intermission coordinator insulin use: with intermission coordinator use Diabetes mellitus complication status: with kidney complications Diabetes mellitus complication detail: with chronic kidney disease Chronic kidney disease stage : stage 3 (moderate) Qualified Code(s): E11.22 - Type 2 diabetes mellitus with diabetic chronic kidney disease; N18.3 - Chronic kidney disease, stage 3 ( moderate); Z79.4 - care home (current) use of insulin (4) Syncope and collapse Code(s): R55 - SYNCOPE AND COLLAPSE Status: Acute (5) HTN (hypertension) Code(s): I10 - ESSENTIAL (PRIMARY) HYPERTENSION Status: Chronic - Plan ASA, statin for cerebellar infarct PT/OT selected home meds ACCU/ss/etc b-krystle started for [employer] Eliquis starting in 1 week per cardiology rehab placement needs [facility] prior to discharge
[2019-09-05] MEDS: Acetaminophen 325 MG TAB PO PRN ×2 (11:39→23:04)
[2019-09-05] MEDS: Ondansetron PF 4 MG/2 ML Vial SLOW IVP PRN (17:15)
[2019-09-05] MEDS: Atorvastatin Calcium 20 MG TAB PO SCH (23:01)
[2019-09-06] MEDS: Meclizine HCl 25 MG TAB PO SCH ×3 (06:01→21:17)
[2019-09-06] MEDS: HumaLOG 300 UNITS/3 ML VIAL SC PRN ×2 (07:08→18:24)
[2019-09-06] MEDS: Acetaminophen 325 MG TAB PO PRN ×2 (07:09→14:31)
--- NOTE | 2019-09-06 09:25 | PDOC.HOSPP ---
- Subjective Encounter Date: 09/06/19 Encounter Time: 10:50 Subjective: Decreased Bowel movements now. Dizziness continues to improve some. - Objective Vital Signs & Weight: Vital Signs (12 hours) Temp Pulse Resp BP Pulse Ox 09/06/19 04:00 97.4 F L 73 16 130/60 98 09/06/19 00:00 97.9 F 68 16 110/63 97 09/05/19 23:00 97 Weight Admit Weight 227 lb 5 oz Weight 222 lb 9.6 oz I&O: 09/05/19 09/06/19 09/07/19 06:59 06:59 06:59 Intake Total 600 284 Output Total 550 100 Balance 50 184 Result Diagrams: 09/01/19 09:03 09/05/19 04:37 Additional Labs: Accuchecks 09/06/19 09/05/19 09/05/19 06:17 20:23 16:37 POC Glucose 158 H 228 H 146 H 09/05/19 10:47 POC Glucose 131 H Hospitalist ROS - Review of Systems Constitutional: denies: fever, chills Respiratory: denies: cough, shortness of breath Cardiovascular: denies: chest pain, palpitations Gastrointestinal: denies: nausea, vomiting, abdominal pain, diarrhea, constipation - Medication Medications: Active Medications Generic Name Dose Route Start Last Admin Trade Name Williamq PRN Reason Stop Dose Admin Acetaminophen 650 mg 09/02/19 04:06 09/06/19 07:09 Tylenol PO 650 mg Q6H PRN Administration Pain Alprazolam 0.25 mg 09/03/19 09:00 09/05/19 08:39 Xanax PO 0.25 mg DAILY CANDE Administration Aspirin 325 mg 09/02/19 09:00 09/05/19 08:39 Ecotrin PO 325 mg DAILY CANDE Administration Atorvastatin Calcium 20 mg 09/02/19 21:00 09/05/19 23:01 Lipitor PO 20 mg HS CANDE Administration Carvedilol 3.125 mg 09/03/19 08:00 09/05/19 17:16 Coreg PO 3.125 mg BID-WM CANDE Administration Colchicine 0.6 mg 09/02/19 21:00 09/05/19 23:02 Colchicine PO Not Given BID CANDE Cyanocobalamin 1,000 mcg 09/03/19 09:00 09/05/19 08:39 Vitamin B-12 PO 1,000 mcg DAILY CANDE Administration Enoxaparin Sodium 40 mg 09/02/19 09:00 09/05/19 08:40 Lovenox SC 40 mg 0900 CANDE Administration Furosemide 40 mg 09/03/19 09:00 09/05/19 08:38 Lasix PO 40 mg DAILY CANDE Administration Insulin Glargine 17 units/ 0.17 mls @ 0 mls/hr 09/02/19 09:00 09/05/19 23:03 Miscellaneous Medication SC 0.17 mls BID CANDE Administration Insulin Human Lispro 0 units 09/01/19 17:44 09/06/19 07:08 Humalog SC 2 unit .MILD SLIDING SCALE PRN Administration MILD SLIDING SCALE Protocol Insulin Human Lispro 0 units 09/01/19 23:50 09/02/19 00:01 Humalog SC 2 unit .BEDTIME SLIDING SC PRN Administration BEDTIME SLIDING SCALE Protocol Levothyroxine Sodium 75 mcg 09/03/19 09:00 09/05/19 08:39 Synthroid PO 75 mcg DAILY CANDE Administration Magnesium Oxide 500 mg 09/03/19 09:00 09/05/19 08:38 Magnesium Oxide PO 500 mg DAILY CANDE Administration Meclizine HCl 25 mg 09/03/19 14:00 09/06/19 06:01 Antivert PO 25 mg Q8HR CANDE Administration Metformin HCl 1,000 mg 09/02/19 17:00 09/05/19 17:15 Glucophage PO 1,000 mg BID-WM CANDE Administration Multivitamins 1 tab 09/03/19 09:00 09/05/19 08:39 Theragran PO 1 tab DAILY CANDE Administration Ondansetron HCl 8 mg 09/01/19 19:56 09/05/19 17:15 Zofran SLOW IVP 8 mg Q6H PRN Administration Nausea Pantoprazole Sodium 40 mg 09/03/19 09:00 09/05/19 08:39 Protonix PO 40 mg DAILY CANDE Administration Canagliflozin [ 0 each 09/03/19 09:00 09/05/19 08:40 Invokana] PO 1 each DAILY CANDE Administration Potassium Chloride 10 meq 09/03/19 09:00 09/05/19 08:40 Klor-Con PO 10 meq DAILY CANDE Administration Sacubitril/Valsartan 1 tab 09/05/19 09:00 09/05/19 23:03 Entresto 24 Mg-26 Mg Tablet PO 1 tab BID CANDE Administration - Exam General Appearance: NAD, awake alert ENT: moist mucosa Heart: RRR, no murmur, no gallops, no rubs Respiratory: CTAB, no wheezes, no rales, no ronchi Gastrointestinal: soft, non-tender, non-distended, normal bowel sounds Psychiatric: normal affect, normal behavior, A&O x 3 Hosp A/P (1) Cerebellar stroke, acute Code(s): I63.9 - CEREBRAL INFARCTION, UNSPECIFIED Status: Acute (2) Cardiomyopathy Code(s): I42.9 - CARDIOMYOPATHY, UNSPECIFIED Status: Acute Qualifiers: Cardiomyopathy type: ischemic Qualified Code(s): I25.5 - Ischemic cardiomyopathy (3) DM type 2 (diabetes mellitus, type 2) Status: Acute Qualifiers: Diabetes mellitus process mechanic insulin use: with fdc use Diabetes mellitus complication status: with kidney complications Diabetes mellitus complication detail: with chronic kidney disease Chronic kidney disease stage : stage 3 (moderate) Qualified Code(s): E11.22 - Type 2 diabetes mellitus with diabetic chronic kidney disease; N18.3 - Chronic kidney disease, stage 3 ( moderate); Z79.4 - longterm (current) use of insulin (4) Syncope and collapse Code(s): R55 - SYNCOPE AND COLLAPSE Status: Acute (5) HTN (hypertension) Code(s): I10 - ESSENTIAL (PRIMARY) HYPERTENSION Status: Chronic - Plan ASA, statin for cerebellar infarct PT/OT selected home meds ACCU/ss/etc b-krystle started for [employer] Eliquis starting in 1 week per cardiology (09/11/2019) rehab placement needs [facility] prior to discharge, likely today, rehab already approved
[2019-09-06 09:36] VITALS: BMI 32.8
[2019-09-06] MEDS: Enoxaparin Sodium 40 MG/0.4 ML SYRINGE SC SCH (09:40)
[2019-09-06] MEDS: Insulin Glargine 17 UNITS in Pre-Filled Syringe 1 EACH SC SCH ×2 (09:42→21:18)
[2019-09-06] MEDS: Magnesium Oxide 250 MG TAB PO SCH (09:43)
[2019-09-06] MEDS: Cyanocobalamin (Vitamin B-12) 1,000 MCG TAB PO SCH (09:44)
[2019-09-06] MEDS: ALPRAZolam 0.25 MG TAB PO SCH (09:45)
[2019-09-06] MEDS: Furosemide 40 MG TAB PO SCH (09:45)
[2019-09-06] MEDS: Aspirin 325 mg Enteric Coated Tablet PO SCH (09:45)
[2019-09-06] MEDS: Carvedilol 3.125 MG TAB PO SCH ×2 (09:45→18:24)
[2019-09-06] MEDS: metFORMIN 500 MG TAB PO SCH ×2 (09:45→18:24)
[2019-09-06] MEDS: Colchicine 0.6 MG TAB PO SCH ×2 (09:46→22:56)
[2019-09-06] MEDS: Multivit, Therapeutic 1 TAB PO SCH (09:46)
[2019-09-06] MEDS: Canagliflozin [Invokana] PO SCH (09:46)
[2019-09-06] MEDS: Levothyroxine Sodium 75 MCG TAB PO SCH (09:53)
[2019-09-06] MEDS ORDERED: Lidocaine 5% Patch TD SCH (20:00)
[2019-09-06] MEDS: Atorvastatin Calcium 20 MG TAB PO SCH (21:17)
[2019-09-07] MEDS: Meclizine HCl 25 MG TAB PO SCH ×2 (05:48→13:02)
[2019-09-07] MEDS: Acetaminophen 325 MG TAB PO PRN ×2 (05:48→13:05)
[2019-09-07] MEDS ORDERED: Levothyroxine Sodium 75 MCG TAB PO SCH (06:00)
[2019-09-07] MEDS ORDERED: Lidocaine Patch Removal 1 EACH TOP SCH ×2 (08:00→21:00)
--- NOTE | 2019-09-07 08:11 | PDOC.HOSPP ---
- Subjective Encounter Date: 09/07/19 Encounter Time: 11:10 Subjective: Patient unchanged. Working with PT. No more diarrhea. Back pain ok this AM. - Objective Vital Signs & Weight: Vital Signs (12 hours) Temp Pulse Resp BP Pulse Ox 09/07/19 07:30 97.3 F L 72 19 125/62 98 09/07/19 02:59 96.5 F L 72 18 120/72 98 09/07/19 00:00 97.5 F L 72 18 114/65 98 Weight Admit Weight 227 lb 5 oz Weight 221 lb 1.6 oz I&O: 09/06/19 09/07/19 09/08/19 06:59 06:59 06:59 Intake Total 284 1100 Output Total 100 50 Balance 184 1050 Result Diagrams: 09/01/19 09:03 09/05/19 04:37 Additional Labs: Accuchecks 09/07/19 09/06/19 09/06/19 06:00 20:05 16:44 POC Glucose 172 H 209 H 180 H 09/06/19 10:48 POC Glucose 140 H Hospitalist ROS - Review of Systems Constitutional: denies: fever, chills Respiratory: denies: cough, shortness of breath Cardiovascular: denies: chest pain, palpitations Gastrointestinal: denies: nausea, vomiting, abdominal pain, diarrhea, constipation - Medication Medications: Active Medications Generic Name Dose Route Start Last Admin Trade Name Freq PRN Reason Stop Dose Admin Acetaminophen 650 mg 09/02/19 04:06 09/07/19 05:48 Tylenol PO 650 mg Q6H PRN Administration Pain Alprazolam 0.25 mg 09/03/19 09:00 09/06/19 09:45 Xanax PO 0.25 mg DAILY CANDE Administration Aspirin 325 mg 09/02/19 09:00 09/06/19 09:45 Ecotrin PO 325 mg DAILY CANDE Administration Atorvastatin Calcium 20 mg 09/02/19 21:00 09/06/19 21:17 Lipitor PO 20 mg HS CANDE Administration Carvedilol 3.125 mg 09/03/19 08:00 09/06/19 18:24 Coreg PO 3.125 mg BID-WM CANDE Administration Colchicine 0.6 mg 09/02/19 21:00 09/06/19 22:56 Colchicine PO Not Given BID CANDE Cyanocobalamin 1,000 mcg 09/03/19 09:00 09/06/19 09:44 Vitamin B-12 PO 1,000 mcg DAILY CANDE Administration Enoxaparin Sodium 40 mg 09/02/19 09:00 09/06/19 09:40 Lovenox SC 40 mg 0900 CANDE Administration Furosemide 40 mg 09/03/19 09:00 09/06/19 09:45 Lasix PO 40 mg DAILY CANDE Administration Insulin Glargine 17 units/ 0.17 mls @ 0 mls/hr 09/02/19 09:00 09/06/19 21:18 Miscellaneous Medication SC 0.17 mls BID CANDE Administration Insulin Human Lispro 0 units 09/01/19 17:44 09/06/19 18:24 Humalog SC 2 unit .MILD SLIDING SCALE PRN Administration MILD SLIDING SCALE Protocol Insulin Human Lispro 0 units 09/01/19 23:50 09/02/19 00:01 Humalog SC 2 unit .BEDTIME SLIDING SC PRN Administration BEDTIME SLIDING SCALE Protocol Levothyroxine Sodium 75 mcg 09/07/19 06:00 09/07/19 05:48 Synthroid PO 75 mcg 0600 CANDE Administration Lidocaine 1 patch 09/06/19 20:00 09/06/19 19:07 Lidoderm 5% Patch TD 1 patch 1999 CANDE Administration Magnesium Oxide 500 mg 09/03/19 09:00 09/06/19 09:43 Magnesium Oxide PO 500 mg DAILY CANDE Administration Meclizine HCl 25 mg 09/03/19 14:00 09/07/19 05:48 Antivert PO 25 mg Q8HR CANDE Administration Metformin HCl 1,000 mg 09/02/19 17:00 09/06/19 18:24 Glucophage PO 1,000 mg BID-WM CANDE Administration Multivitamins 1 tab 09/03/19 09:00 09/06/19 09:46 Theragran PO 1 tab DAILY CANDE Administration Ondansetron HCl 8 mg 09/01/19 19:56 09/05/19 17:15 Zofran SLOW IVP 8 mg Q6H PRN Administration Nausea Pantoprazole Sodium 40 mg 09/03/19 09:00 09/06/19 09:45 Protonix PO 40 mg DAILY CANDE Administration Canagliflozin [ 0 each 09/03/19 09:00 09/06/19 09:46 Invokana] PO 1 each DAILY CANDE Administration Potassium Chloride 10 meq 03/08/20 09:00 09/06/19 09:44 Klor-Con PO 10 meq DAILY CANDE Administration Sacubitril/Valsartan 1 tab 09/05/19 09:00 09/06/19 21:36 Entresto 24 Mg-26 Mg Tablet PO 1 tab BID CANDE Administration Sodium Chloride 10 ml 09/01/19 14:21 09/06/19 21:19 Flush - Normal Saline IVF 10 ml PRN PRN Administration Saline Flush - Exam General Appearance: NAD, awake alert Heart: RRR, no murmur, no gallops, no rubs Respiratory: CTAB, no wheezes, no rales, no ronchi Gastrointestinal: soft, non-tender, non-distended, normal bowel sounds Psychiatric: normal affect, normal behavior, A&O x 3 Hosp A/P (1) Cerebellar stroke, acute Code(s): I63.9 - CEREBRAL INFARCTION, UNSPECIFIED Status: Acute (2) Cardiomyopathy Code(s): I42.9 - CARDIOMYOPATHY, UNSPECIFIED Status: Acute Qualifiers: Cardiomyopathy type: ischemic Qualified Code(s): I25.5 - Ischemic cardiomyopathy (3) DM type 2 (diabetes mellitus, type 2) Status: Acute Qualifiers: Diabetes mellitus senior living insulin use: with senior living use Diabetes mellitus complication status: with kidney complications Diabetes mellitus complication detail: with chronic kidney disease Chronic kidney disease stage : stage 3 (moderate) Qualified Code(s): E11.22 - Type 2 diabetes mellitus with diabetic chronic kidney disease; N18.3 - Chronic kidney disease, stage 3 ( moderate); Z79.4 - assisted (current) use of insulin (4) Syncope and collapse Code(s): R55 - SYNCOPE AND COLLAPSE Status: Acute (5) HTN (hypertension) Code(s): I10 - ESSENTIAL (PRIMARY) HYPERTENSION Status: Chronic - Plan ASA, statin for cerebellar infarct PT/OT selected home meds ACCU/ss/etc b-kyrstle started for [employer] Eliquis starting in 1 week per cardiology (09/11/2019) rehab placement [facility] in place, awaiting rehab bed, hopefully today
[2019-09-07] MEDS ORDERED: Lidocaine 5% Patch TD SCH (09:00)
[2019-09-07] MEDS: Enoxaparin Sodium 40 MG/0.4 ML SYRINGE SC SCH (10:08)
[2019-09-07] MEDS: Multivit, Therapeutic 1 TAB PO SCH (10:09)
[2019-09-07] MEDS: Magnesium Oxide 250 MG TAB PO SCH (10:09)
[2019-09-07] MEDS: ALPRAZolam 0.25 MG TAB PO SCH (10:09)
[2019-09-07] MEDS: Aspirin 325 mg Enteric Coated Tablet PO SCH (10:09)
[2019-09-07] MEDS: Furosemide 40 MG TAB PO SCH (10:09)
[2019-09-07] MEDS: Insulin Glargine 17 UNITS in Pre-Filled Syringe 1 EACH SC SCH (10:09)
[2019-09-07] MEDS: Cyanocobalamin (Vitamin B-12) 1,000 MCG TAB PO SCH (10:10)
[2019-09-07] MEDS: metFORMIN 500 MG TAB PO SCH ×2 (10:10→16:36)
[2019-09-07] MEDS: Carvedilol 3.125 MG TAB PO SCH ×2 (10:10→16:23)
[2019-09-07] MEDS: Colchicine 0.6 MG TAB PO SCH (10:10)
[2019-09-07] MEDS: Canagliflozin [Invokana] PO SCH (10:11)
[2019-09-07] MEDS: HumaLOG 300 UNITS/3 ML VIAL SC PRN (13:02)
[2019-09-07 16:31] VITALS: BP 116/59; TEMP 97.5
--- NOTE | 2019-09-08 07:42 | DIS ---
DATE OF ADMISSION: 09/01/2019 DATE OF DISCHARGE: 09/07/2019 PRIMARY CARE PHYSICIAN: Nhan Marcus MD REASON FOR ADMISSION: Right-sided weakness with likely stroke. DISCHARGE DIAGNOSES: 1. Acute cerebellar stroke. 2. Ischemic cardiomyopathy. 3. Diabetes mellitus type 2. 4. Hypertension. 5. Right internal carotid stenosis, 75%. PROCEDURES: 1. CT of the brain without contrast showing findings suspicious for age indeterminate infarction in the right occipital lobe. 2. CTA of the head with and without contrast of the head and neck showing a very diminutive right vertebral artery with severe stenosis at the origin and possible occlusion of the distal cervical and intracranial portions, heavy atherosclerotic plaque on the proximal right internal carotid artery causing approximately 75% stenosis. Also, has severe short segment focal stenosis of bilateral carotid siphons of the junctions between cavernous and supraclinoid segments and chronic deformities at the craniovertebral junction, developmental abnormality. No M1 segment severe stenosis or thrombosis though. 3. MRI of the brain showing evidence for acute infarction in the right cerebellum, particularly the right cerebellar hemisphere and right-sided vermis with some minimal edematous changes and some local mass effect. Also, a small old infarct in the posterior right occipital lobe. 4. Transthoracic echocardiogram showing an ejection fraction of 20% to 25% and grade 2/3 diastolic dysfunction. CONSULTATIONS: 1. Cardiology, Dr. Sigala. 2. Neurology, Dr. Renner. SUMMARY OF HOSPITAL COURSE: This is a 73-year-old white male with a history of diabetes and multiple toe amputations and peripheral neuropathy, also with a history of vertigo. He presented with right-sided weakness and dizziness. His symptoms were improving in the ER, so he was not given tPA. The patient had a CT of the brain, which showed a suspicious lesion for a possible stroke. CTA was performed with the above results. The patient was admitted to the hospital. Neurology was consulted. He had an MRI of the brain showing the above cerebellar stroke. The patient also had some indeterminate troponins in the emergency room. Dr. Sigala was consulted, and an echocardiogram was done, it showed significant decreased ejection fraction. The patient was not in overload during his hospitalization. The patient was found to have dysphagia from his stroke. He had PT, OT, and Speech Therapy work with him. Dr. Sigala determined that he would need Eliquis for stroke prophylaxis, restarted in 1 week. The patient was also put on aspirin, statins, and a beta-krystle. Dr. Sigala also recommended that the patient get a [facility] that is being fitted today. He has been accepted to inpatient rehabilitation and is being discharged after [facility] placement. DISCHARGE MANAGEMENT: Discharged to Inpatient Rehabilitation. ACTIVITY: As tolerated. DIET: Diabetic diet with a puree textures and nectar thick liquids with no straws. THERAPY: Occupational, physical, and speech therapy. EQUIPMENT SUPPLIES: [facility]est. FOLLOWUP: Follow up with Dr. Marcus in 1 to [address] Sigala in 1 month and set up an outpatient followup with Dr. Iabnez, the cardiovascular surgeon, in 2 to 3 weeks about the carotid stenosis. MEDICATIONS: 1. Eliquis 5 mg twice a day to be started on September 10. 2. Lovenox subcu 40 mg subcu daily can be discontinued on September 11, 2019. Eliquis is started. 3. Alprazolam 0.25 mg daily. 4. Aspirin 325 mg daily. 5. Atorvastatin 20 mg at night. 6. Carvedilol 3.125 mg twice a day. 7. Colchicine 0.6 mg twice a day. 8. Vitamin B12 1000 mcg daily. 9. Furosemide 40 mg daily. 10. Levothyroxine 75 mcg daily. 11. Magnesium oxide 500 mg daily. 12. Antivert 25 mg q.8 hours as needed for dizziness. 13. Metformin 1000 mg twice a day. 14. Multivitamin daily. 15. Omeprazole 20 mg daily. 16. Potassium chloride 10 mEq daily. 17. Entresto 24/26 mg one tablet twice a day. 18. Lantus 17 units subcu twice a day. TIME SPENT: Arranging the details of this discharge took 35 minutes. Job ID: [id number]
== END 2019-09-07 16:56 | DRG 65 ==
LOC: ERS 08:40 → ERHOLD 11:23 → 2SE 13:42
PROVIDERS: ADMIT Internal Medicine; ATTEND Emergency Medicine
DX: I63.9 Cerebral infarction, unspecified (principal); G81.91 Hemiplegia, unspecified affecting right dominant side; E78.5 Hyperlipidemia, unspecified; E11.22 Type 2 diabetes mellitus with diabetic chronic kidney disease; N18.3 Chronic kidney disease, stage 3 (moderate); I12.9 Hypertensive chronic kidney disease with stage 1 through stage 4 chronic kidney disease, or unspecified chronic kidney disease; I25.5 Ischemic cardiomyopathy; I65.21 Occlusion and stenosis of right carotid artery; E11.40 Type 2 diabetes mellitus with diabetic neuropathy, unspecified; R40.2362 Coma scale, best motor response, obeys commands, at arrival to emergency department; R40.2132 Coma scale, eyes open, to sound, at arrival to emergency department; R40.2252 Coma scale, best verbal response, oriented, at arrival to emergency department; Z89.421 Acquired absence of other right toe(s); Z79.4 Long term (current) use of insulin; Z87.891 Personal history of nicotine dependence
CPT/HCPCS: 36415; 36416; 70450; 70496; 70498; 70551; 71045; 80048; 80053; 80061; 82010; 82330; 82553; 82803; 82947; 83690; 83735; 84100; 84439; 84481; 84484; 85025; 87324; 87449; 93005; 93306; 93798; J1650; J1815; J2405; J8597; Q9967